=== PATIENT | male | born 1955 | race Caucasian/White ===

== ENCOUNTER 2018-05-18 11:53 | Outpatient (REF) | payer BC, SELFPAY ==
[2018-05-18 21:47] LABS: Anion Gap 6.7 mmol/L (3-11); BUN 19 mg/dL (7-18); CO2 28.3 mmol/L (21.0-32.0); CREATININE 1.17 mg/dL (0.70-1.30); Chloride 98 mmol/L (98-107); Cholesterol 173 mg/dL (50-200); Glucose 119 mg/dL (70-100); HDL Cholesterol 63 mg/dL (40-60); LDL CHOLESTEROL 100 mg/dL (<100); Potassium 4.2 mmol/L (3.5-5.1); Sodium 133 mmol/L (136-145); Triglyceride 101 mg/dL (30-150)
[2018-05-20 09:37] LABS: Hepatitis C Ab w Rflx HCV PCR Negative (NEGAT)
== END 2018-05-18 12:13 ==
LOC: NCHCN 11:53
PROVIDERS: Visit Provider Nurse Practitioner Family
DX: R81 Glycosuria (principal); N40.0 Benign prostatic hyperplasia without lower urinary tract symptoms; F41.8 Other specified anxiety disorders; E87.1 Hypo-osmolality and hyponatremia; I10 Essential (primary) hypertension; K21.9 Gastro-esophageal reflux disease without esophagitis; Z00.00 Encounter for general adult medical examination without abnormal findings; Z11.59 Encounter for screening for other viral diseases
CPT/HCPCS: 80048; 80061; 83721; 86803

== ENCOUNTER 2019-01-14 11:41 | Outpatient (REF) | payer BC, SELFPAY ==
[2019-01-14 21:03] LABS: Anion Gap 9.4 mmol/L (3-11); BUN 19 mg/dL (7-18); CO2 28.6 mmol/L (21.0-32.0); CREATININE 0.94 mg/dL (0.70-1.30); Calcium 9.5 mg/dL (8.5-10.1); Chloride 93 mmol/L (98-107); Glucose 95 mg/dL (70-100); Potassium 4.2 mmol/L (3.5-5.1); Sodium 131 mmol/L (136-145)
== END 2019-01-14 12:01 ==
LOC: NCHCN 11:41
PROVIDERS: PCP Nurse Practitioner Family; Visit Provider Nurse Practitioner Family
DX: I10 Essential (primary) hypertension (principal)
CPT/HCPCS: 80048

== ENCOUNTER 2019-04-14 12:53 | Outpatient (REF) | payer BC, SELFPAY ==
[2019-04-14 21:08] LABS: Anion Gap 6.5 mmol/L (3-11); BUN 18 mg/dL (7-18); CO2 31.5 mmol/L (21.0-32.0); CREATININE 1.01 mg/dL (0.70-1.30); Calcium 9.5 mg/dL (8.5-10.1); Chloride 97 mmol/L (98-107); Glucose 110 mg/dL (70-100); Potassium 4.8 mmol/L (3.5-5.1); Sodium 135 mmol/L (136-145)
== END 2019-04-14 13:13 ==
LOC: NCHCN 12:53
PROVIDERS: PCP Nurse Practitioner Family; Visit Provider Nurse Practitioner Family
DX: I10 Essential (primary) hypertension (principal)
CPT/HCPCS: 80048

== ENCOUNTER 2019-05-12 13:27 | Outpatient (REF) | payer BC, SELFPAY ==
[2019-05-12 21:38] LABS: Hemoglobin A1C 5.3 % (4.5-6.2)
== END 2019-05-12 13:47 ==
LOC: NCHCN 13:27
PROVIDERS: PCP Nurse Practitioner Family; Visit Provider Nurse Practitioner Family
DX: I10 Essential (primary) hypertension (principal); E87.1 Hypo-osmolality and hyponatremia; R81 Glycosuria; F41.8 Other specified anxiety disorders; K21.9 Gastro-esophageal reflux disease without esophagitis
CPT/HCPCS: 83036

== ENCOUNTER 2021-03-28 12:37 | Outpatient (REF) | payer BC, SELFPAY ==
[2021-03-28 16:51] LABS: ALT 48 U/L (16-63); AST 33 U/L (15-37); Albumin 4.3 g/dL (3.4-5.0); Alkaline Phosphatase 42 U/L (46-116); Anion Gap 12.1 mmol/L (3-11); BUN 18 mg/dL (7-18); Bilirubin, Total 0.7 mg/dL (0.2-1.0); CO2 25.9 mmol/L (21.0-32.0); CREATININE 0.9 mg/dL (0.70-1.30); Calcium 9.4 mg/dL (8.5-10.1); Calculated LDL 95 mg/dL (<100); Chloride 98 mmol/L (98-107); Cholesterol 176 mg/dL (<200); Glucose 118 mg/dL (74-106); HDL Cholesterol 58 mg/dL (40-60); Potassium 4.3 mmol/L (3.5-5.1); Sodium 136 mmol/L (136-145); Total Protein 7.3 g/dL (6.4-8.2); Triglyceride 118 mg/dL (<150)
== END 2021-03-28 12:38 | disposition home or self-care (01) ==
LOC: NCHCN 12:37
PROVIDERS: PCP Nurse Practitioner Family; Visit Provider Nurse Practitioner Family
DX: M72.0 Palmar fascial fibromatosis [Dupuytren] (principal); N40.0 Benign prostatic hyperplasia without lower urinary tract symptoms; F32.9 Major depressive disorder, single episode, unspecified; E87.1 Hypo-osmolality and hyponatremia; I10 Essential (primary) hypertension; K21.9 Gastro-esophageal reflux disease without esophagitis; Z86.010 Personal history of colon polyps
CPT/HCPCS: 80053; 80061

== ENCOUNTER 2021-07-02 11:08 | Outpatient (REF) | payer BC, SELFPAY ==
[2021-07-02 22:27] LABS: PSA, Screening 1.9 ng/mL (0.0-4.5)
== END 2021-07-02 11:09 | disposition home or self-care (01) ==
LOC: NCHCN 11:08
PROVIDERS: PCP Nurse Practitioner Family; Visit Provider Nurse Practitioner Family
DX: N40.0 Benign prostatic hyperplasia without lower urinary tract symptoms (principal); Z12.5 Encounter for screening for malignant neoplasm of prostate
CPT/HCPCS: 84153

== ENCOUNTER 2022-06-13 18:18 | Outpatient (REF) | payer BC, SELFPAY ==
[2022-06-13 16:01] LABS: Hemoglobin A1C 5.4 % (<5.7)
[2022-06-13 17:10] LABS: ALT 51 U/L (16-63); AST 34 U/L (15-37); Albumin 4.3 g/dL (3.4-5.0); Alkaline Phosphatase 42 U/L (46-116); Anion Gap 8.9 mmol/L (3-11); BUN 20 mg/dL (7-18); Bilirubin, Total 0.9 mg/dL (0.2-1.0); CO2 28.1 mmol/L (21.0-32.0); CREATININE 1.1 mg/dL (0.70-1.30); Calcium 9.4 mg/dL (8.5-10.1); Calculated LDL 83 mg/dL (<100); Chloride 94 mmol/L (98-107); Cholesterol 180 mg/dL (<200); Estimated GFR 74.04 (mL/min/1.73m2); Glucose 90 mg/dL (74-106); HDL Cholesterol 79 mg/dL (40-60); Potassium 4.3 mmol/L (3.5-5.1); Sodium 131 mmol/L (136-145); Triglyceride 92 mg/dL (<150)
== END 2022-06-13 18:19 | disposition home or self-care (01) ==
LOC: NCHCN 18:18
PROVIDERS: PCP Nurse Practitioner Family; Visit Provider Nurse Practitioner Family
DX: I10 Essential (primary) hypertension (principal); E66.9 Obesity, unspecified; F41.8 Other specified anxiety disorders; K21.9 Gastro-esophageal reflux disease without esophagitis; M72.0 Palmar fascial fibromatosis [Dupuytren]
CPT/HCPCS: 80053; 80061; 83036

== ENCOUNTER 2024-09-30 13:37 | Outpatient (REF) | payer BC, SELFPAY ==
--- OUTSIDE RECORDS SUMMARY | 2024-09-30 13:40 | XMS_ITS | Encounter Summary ---
Author Organization [facility] Address [facility] [place] [address] Care Team Providers Care Medical And Health Services Manager Name Role Phone Fani Jolley APRN Primary Care Provider [phone] [phone] Reason for Visit * Reason Comments Establish Care XR R 4th/5th finger Dups * Consultation (Routine) - Specialty Diagnoses / Procedures Referred By Joshua vega Referred To Contact Orthopaedics Diagnoses Palmar fascial fibromatosis (dupuytren) RIGHT DUPUYTREN'S CONTRACTURE Fani Jolley APRN [address] [place] [address] [facility] [address] [place] [address] Referral ID Status Reason Start Date Expiration Date V isits Requested Visits Authorized [id number] Consult, Test & Treat [facility] PCP Updated and/or Approved 10/06/2019 10/06/2020 12 12 Encounter Details Date Type Department Care Team (Late st Contact Info) Description 11/09/2019 1:00 PM EST Office [place] [address] Tamika Guan PA [facility] [place] [address] Dupuytren's contracture Social History Tobacco Use Types Packs/Day Years Used Date Smoking Tobacco: Former Pipe Q uit: 11/08/2009 Smokeless Tobacco: Never Alcohol Use Standard Drinks/Week Comments Yes 5 (1 standard drink = 0.6 oz pur e alcohol) Sex and Gender Information Value Date Recorded Sex Assigned at Not on file Gender Identity Not on file Sexual Orientation Not on file documented as of this encounter Last Filed Vital Signs Vital Sign Reading Time Taken Comments Blood Pressure 154/82 11/09/2019 1:06 PM EST Pulse 73 11/09/2019 1:06 PM EST Temperature - - Respiratory Rate - - Oxygen Saturation - - Inhaled Oxygen Concentration - - Weight 81.6 kg (180 lb) 11/09/2019 1:06 PM EST r eported Height 177.8 cm (5' 10) 11/09/2019 1:06 PM EST reported Body Mass Index 25.83 11/09/2019 1:06 PM EST documented in this encounter Progress Notes * Tamika Guan PA - 11/09/2019 1:00 PM EST PATIENT NAME: Dakota Cline AGE: 64 y.o. MR#: [id number] DATE OF VISIT: 11/09/2019 DATE OF INJURY/ONSET: Chronic STAFF: Dr. Diaz CHIEF COMPLAINT: Right hand contracture HISTORY OF PRESENT ILLNESS: Mr. Cline is a right hand dominant 64 y.o. male who comes into clinic today for evaluation of the right hand. He states that he has had a flexion contracture of his ring and small fingers for several years. He has perhaps noticed some slight worsening of the contracture recently. He is not having any significant hand pain. He is starting to develop some nodules in the left hand and states he has similar nodules in his feet. He is unaware of any family history of Dupuytren's disease. He denies having any history of seizure disease, alcoholism, or diabetes. He is noton any blood thinners. He states that he was told that topical verapamil might help with his hand symptoms. He has seen a physical therapist and initially felt that some stretching was helping with his contractures, but he was ultimately discharged from care. He also has a chiropractor who thought that cold laser therapy could be of benefit. He has not had any prior hand surgeries. Medications and Allergies were reviewed in eD-[facility] PAST MEDICAL HX: History reviewed. No pertinent past medical history. PAST SURGICAL HX: Past Surgical History: Procedure Laterality Date ??? PRO COLONOSCOPY, BIOPSY 05/01/2014 COLONOSCOPY FLEXIBLE, WITH BX performed by Gurvinder Bruce MD at [facility] ??? PRO COLONOSCOPY, DIAGNOSTIC N/A 06/20/2019 COLONOSCOPY, DIAGNOSTIC performed by Gurvinder Bruce MD at [facility] FAMILY HX: Family History Problem Relation Age of Onset ??? Diabetes Neg Hx SOCIAL HX: Social History Occupational History ??? Occupation: commercial truck driver Employer: [employer] Tobacco Use ??? Smoking status: Former Smoker Types: Pipe Last attempt to quit: 11/08/2009 Years since quittin.0 ??? Smokeless tobacco: Never Used Substance and Sexual Activity ??? Alcohol use: Yes Alcohol/week: 5.0 - 6.0 standard drinks Types: 5 - 6 Cans of beer per week ??? Drug use: Never ??? Sexual activity: Not on file ROS: Pertinent items are noted in HPI. General Health, Prior Treatments, PreExisting Condition, Health Habits, About You 11/09/2019 PROMIS-10 General Health Excellent PROMIS-10 Quality of Life Excellent PROMIS-10 Physical Health Excellent PROMIS-10 Mental Health Excellent PROMIS-10 Social Activity Very Good PROMIS-10 Everyday Activities Completely PROMIS-10 Pain 0 -No Pain PROMIS-10 Fatigue Mild PROMIS-10 Social Roles Excellent PROMIS-10 Anxious or Depressed Rarely PROMIS PHYSICAL SCORE (range 16-68) 61.9 PROMIS MENTAL SCORE (range 21-68) 59 Treatments Tried Physical therapy, Chiropractic or manipulation Alzheimers or dementia No Cirrohosis or liver disease No HIV/AIDS No Pain in more than one joint in legs No Back or neck pain No Heart attack No Heart failure No Unclog/bypass leg arteries No Stroke, blood clot, TIA No Asthma No Emphysema, chronic bronchities, or COPD No Stomach ulcers/peptic ulcer disease No Diabetes No Poor kidney function No Rheumatic condtions No Cancer No Weight (lbs) 180 Height (feet) 5 feet Height (Inches) 9 BMI 26.57 (Overweight) Ever used tobacco products Yes Tobacco frequency Never WHO - Tobacco Advice 0 (You are at low risk of health and other problems from your current pattern of use.) Ever used alcoholic beverages Yes Alcohol frequency Weekly WHO - Alcohol Advice 4 (You are at risk of health and other problems from your current pattern of alcohol use.) Live Alone No Marital situation Schooling High school graduate or GED Combined Household Income $35,000 to less than $50,000 # People Supported 3 Australian, , No, not Australian// Race White Health Literacy Quite a bit Currently working Yes Current job situation Full-time No flowsheet data found. No flowsheet data found. PHYSICAL EXAM: Mr. Cline is a 64 y.o. male who is in no apparent distress, alert and cooperative. Inspection: No erythema, ecchymosis, or swelling over the right hand. Palpation: He has a large palpable pretendinous cord that extends into the right small finger. Thisbranch is out into a smaller pretendinous cord that causes a contracture in the ring finger. He hasa nodule at the level of the proximal phalanx in the small finger. He is starting to develop some nodules and pretendinous cords in the left hand, but no significant contractures. ROM/Strength: He is able to flex all of his digits. He has a 70 degree MCP contracture in the rightsmall finger and 40 degrees MCP contracture in the right ring finger. There are no PIP contractures. Neurovascular: Intact motor function of the radial, median, and ulnar nerves. Intact sensation along radial, median, and ulnar nerve distributions. Good hand perfusion. DIAGNOSTIC STUDIES: X-rays of the right hand were personally reviewed. There is no evidence of any acute fracture or dislocation. No significant arthritic changes are noted. ASSESSMENT: Right hand Dupuytren's contractures PLAN: We discussed treatment options for dupuytren's disease including splinting and stretching, collagenase injection, and surgical fasciectomy. We also talked about the natural course of the disease including the unpredictable rate of worsening and recurrance. Risks associated with treatment werediscussed including infection, wound complications, nerve/blood vessel/tendon injury, incomplete correction of the contracture, and recurrence. 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 He is leaning towards Xiaflex therapy, but he would like to think about this before making a final decision. He was given information and will contact us if he would like to schedule treatment. Thepatient understands to contact us if they have any other questions or concerns. The above documentation was completed using [employer] voice recognition software. documented in this encounter Plan of Treatment Not on file documented as of this encounter Visit Diagnoses Diagnosis Dupuytren's contracture Contracture of palmar fascia documented in this encounter Care Teams Medical And Health Services Manager Relationship Specialty Start Date End Date Fani Jolley APRN [address] [place] [address] PCP - General Family Medicine 03/01/19 documented as of this encounter
--- OUTSIDE RECORDS SUMMARY | 2024-09-30 13:40 | XMS_ITS | Encounter Summary ---
Author Organization [facility] Address [place] [id number] Care Team Providers Care Senior Private Client Advisor Name Role Phone Fani Jolley APRN Primary Care Provider [phone] Reason for Visit * Occupational Therapy (Routine) - Closed Specialty Diagnoses / Procedures Referred By Contshade t Referred To Contact Occupational Therapy / Orthopaedics Diagnoses Dupuytren contracture Dupuytren contracture Procedures Evaluate and Treat Joao Diaz MD [facility] [place] [address] Farzaneh Ivory OT Referral ID Status Reason Start Date Expiration Date V isits Requested Visits Authorized [id number] Closed Evaluate and Treat 12/19/2020 12/19/2021 12 12 Encounter Details Date Type Department Care Team (Late st Contact Info) Description 12/19/2020 11:45 AM EDT Office [place] [address] Farzaneh Ivory OT Dupuytren's contracture Social History Tobacco Use Types [...] on file documented as of this encounter Miscellaneous Notes * Initial Evaluation - Farzaneh Ivory OT - 12/19/2020 11:45 AM EDT OCCUPATIONAL THERAPY ORTHOTIC EVALUATION Certification Period: 12/19/20 - 02/13/21 Referral Source: Dr. Emily Shine MD Follow-up: PRN Total Treatment time: 20 Minutes Timed Code Treatment Time: 0 minutes OCCUPATIONAL PROFILE: Dakota Cline is a 65 y.o. year old Right hand dominant male who who underwent Xiaflex injection on 12/17/20 , now seen in orthopedics clinic following a manipulation of cord(s)in RIGHT ring and small finger(s). Dakota Cline is referred to Occupational Therapy for evaluation and treatment to include fabrication of a custom orthosis. Patient presents today alone. Date of onset of symptoms: Ongoing Date of surgery: Pertinent History and/or Co-morbidities: No diagnosis found. OCCUPATIONAL PERFORMANCE DEFICITS: Dakota Cline is limited with current performance due to swelling and stiffness. Global Mental Function: With gross screening of patient???s global mental functions, patient demonstrates orientation to person, place, time, and situation. Patient???s affect/behavior is appropriateand cooperative today. Pain: (Assessed using the Visual Analog Pain Scale) At Rest: 09/16 With Activity: 11/14 Treatment Today: Orthosis - Hand Finger Orthotic, W/O Jts, Custom, Fit & Adj ([id number]) Educated patient in etiology and biomechanics as related to patient's symptoms Fabricated hand-based volar extension orthosis Instructed in orthosis wear and care: on during day and night until 12/22/20. Remove every 2-3 hoursfor AROM flexion, extension; PROM extension. On Thursday, may stop daytime wear and wear only during sleep for the next week. Resume normal use as tolerated,continue with exercises for 1-2 weeks. CLINICAL DECISION MAKING: Dakota Cline has a well fitting orthosis post therapy. Dakota Cline is able to independently verbalize and demonstrate the recommended home program following instructions today. Dakota Cline has good potential for gains with therapy/home program use. Patient knows tocall with any questions or concerns. Short Term Goals (to be met by end of the visit today): Date Goal Met: Today 1. Dakota Cline will demonstrate independence with donning and doffing of his orthosis and verbalization of purpose. Goal Status: Meets. Today 2. Dakota Cline will be independent with home exercises as evident with demonstration in therapy. Goal Status: Meets PLAN: Therapeutic exercises to increase functional mobility and Orthosis to provide support and protection to the joint (X) Dakota Cline participated in the evaluation, collaborated on treatment goals, and agrees to the treatment plan. documented in this encounter Plan of Treatment Scheduled Referrals Name Type Priority Associated Diagnoses Orde r Schedule Referral to Occupational Therapy Outpatient Referral Routine Dupuytren contracture Ordered: 12/19/2020 documented as of this encounter Visit Diagnoses Diagnosis Dupuytren's contracture Contracture of palmar fascia documented in this encounter Care Teams Senior Private Client Advisor Relationship Specialty Start Date End Date Fani Jolley APRN [address] [place] [address] PCP - General Family Medicine 03/01/19 documented as of this encounter
--- OUTSIDE RECORDS SUMMARY | 2024-09-30 13:40 | XMS_ITS | Encounter Summary ---
Author Organization [facility] Address [facility] [place] [address] Care Team Providers Care Filer Finish Name Role Phone Fani Jolley APRN Primary Care Provider [phone] Reason for Visit * Reason Comments Follow-up R small and ring ajay flex * High Dollar Medication (Routine) - Closed Specialty Diagnoses / Procedures Referred By Joshua t Referred To Contact Orthopaedics Diagnoses Dupuytren contracture Procedures Xiaflex Authorization Request (IN CLINIC) TC COLLAGENASE CLOSTRIDIUM HISTOLYTICUM, 0.01MG, INJECTION XIAFLEX Tamika Guan PA [facility] [address] Joao Diaz MD [facility] [place] [address] Referral ID Status Reason Start Date Expiration Date V isits Requested Visits Authorized [id number] Closed Consult, Test & Treat 10/25/2020 10/25/2021 1 1 Encounter Details Date Type Department Care Team (Late st Contact Info) Description 12/17/2020 8:00 AM EDT Office [place] [id number] Joao Diaz MD [facility] [place] [address] Dupuytren contracture; Dupuytren's contracture Social History Tobacco Use Types [...] Sign Reading Time Taken Comments Blood Pressure 140/73 12/17/2020 8:01 AM EDT Pulse 65 12/17/2020 8:01 AM EDT Temperature - - Respiratory Rate - - Oxygen Saturation - - Inhaled Oxygen Concentration - - Weight 83.9 kg (185 lb) 12/17/2020 8:01 AM EDT r eported Height 177.8 cm (5' 10) 12/17/2020 8:01 AM EDT reported Body Mass Index 26.54 12/17/2020 8:01 AM EDT documented in this encounter Progress Notes * Joao Diaz MD - 12/17/2020 8:00 AM EDT Dakota Cline is seeing me for the first time today for Dupuytren's contractures of his right ringand small fingers. He has pretendinous cords into both digits leading to a 50 degree MCP contracture of the ring finger and a 75 degree MCP contracture of the small finger. He also has an ulnar spiral cord in the ring finger without a significant PIP contracture. He has a radial spiral cord in the small finger leading to a 45 degree PIP contracture. He reports that these have been present for at least 5 years. We discussed the options of Xiaflex therapy versus palmar fasciectomy and he strongly prefers to proceed with Xiaflex therapy today. I had a comprehensive discussion with him about the technique of the procedure as well as the potential risks and he opted to proceed. Today a preinjection timeout was done. I then injected 5 cc of 1% lidocaine into the ring and smallfinger rays of his right hand. After allowing his hand to be numb I injected 0.9 mg of Xiaflex intothe pretendinous and spiral cords in the ring and small fingers. He tolerated this well without apparent complications. He will return in 2 days for cord rupture. documented in this encounter Plan of Treatment Not on file documented as of this encounter Visit Diagnoses Diagnosis Dupuytren contracture Contracture of palmar fascia Dupuytren's contracture Contracture of palmar fascia documented in this encounter Administered Medications Inactive Administered Medications - up to 3 most recent administrations Medication Order MAR Action Action Date Dose Rate Site collagenase clostridium histolyticum (Xiaflex) solution for injection 0.9 mg 0.9 mg, INTRALESIONAL, ONCE, 1 dose, On Thu12/17/20 at 0845, Routine, Is this medication being prescribed for treatment of Peyronie? s disease? No Given 12/17/2020 8:27 AM EDT 0.9 mg documented in this encounter Care Teams Filer Finish Relationship Specialty Start Date End Date Fani Jolley APRN [address] [place] [address] PCP - General Family Medicine 03/01/19 documented as of this encounter
--- OUTSIDE RECORDS SUMMARY | 2024-09-30 13:40 | XMS_ITS | Encounter Summary ---
Author Organization [facility] Address [facility] [place] [address] Care Team Providers Care Improvement Spec Name Role Phone Fani Jolley APRN Primary Care Provider [phone] Reason for Visit * Reason Onset Date Comments Other 10/19/2020 Questions about xiaflex or treatments Encounter Details Date Type Department Care Team (Late st Contact Info) Description 10/19/2020 Telephone [place] [address] Tamika Guan PA [facility] [place] [address] Other (Questions about xiaflex or treatments) Social History Tobacco Use Types Packs/Day Years [...] as of this encounter Miscellaneous Notes * Telephone Encounter - Alea Hatch - 10/22/2020 3:18 PM EST Second attempt to call out to answer questions regarding Xiaflex injection. No answer. Message lefton a marked voicemail to call back. * Telephone Encounter - Alea Hatch - 10/19/2020 4:30 PM EST Attempted to call out to patient to discuss xiaflex. Phone line was busy. * Telephone Encounter - Domonique Ortiz I - 10/19/2020 12:54 PM EST Dakota called and has questions about the xiaflex injection, treatments he can have for his right hand Dupuytren's contracture. He would like It explained to him and maybe schedule. Call him mid day between 11-2 pm. He can be reached at [phone] documented in this encounter Plan of Treatment Not on file documented as of this encounter Visit Diagnoses Not on filedocumented in this encounter Care Teams Improvement Spec Relationship Specialty Start Date End Date Fani Jolley APRN [address] [place] [address] PCP - General Family Medicine 03/01/19 documented as of this encounter
--- OUTSIDE RECORDS SUMMARY | 2024-09-30 13:40 | XMS_ITS | Encounter Summary ---
Author Organization [facility] Address [facility] [address] [place] [address] Care Team Providers Care Nutrient Management Specialist Name Role Phone Fani Jolley APRN Primary Care Provider [phone] Encounter Details Date Type Department Care Team (Latest Contact Info) Description 11/09/2019 11:36 AM EST - 11/09/2019 11:59 PM EST Hospital Encounter XRay at [address] [place] [address] Joao Diaz MD [facility] [place] [address] Right hand pain Discharge Disposition: Home Social History Tobacco Use Types Packs/Day Years Used Date Smoking Tobacco: Former Pipe Q uit: 11/08/2009 Smokeless Tobacco: Never Alcohol Use Standard Drinks/Week Comments Yes 5 (1 standard drink = 0.6 oz pur e alcohol) Sex and Gender Information Value Date Recorded Sex Assigned at Not on file Gender Identity Not on file Sexual Orientation Not on file documented as of this encounter Medications at Time of Discharge Medication Sig Dispensed Refills Start Date End Date UNABLE TO FIND daily. Palmentto hydroCHLOROthiazide (HYDRODIURIL) 12.5 mg Tablet Take 12.5 mg by mouth daily. amLODIPine (NORVASC) 10 mg Tablet Take 10 mg by mouth daily. tamsulosin (FLOMAX) 0.4 mg Capsule Take 0.4 mg by mouth daily. atenolol (TENORMIN) 25 mg Tablet Take 25 mg by mouth daily. lisinopril (PRINIVIL;ZESTRIL) 20 mg tablet Take 40 mg by mouth daily. sertraline (ZOLOFT) 25 mg tablet Take 50 mg by mouth daily. documented as of this encounter Plan of Treatment Not on file documented as of this encounter Procedures Procedure Name Priority Date/Time Associated Diagnosis Comments XR HAND MIN 3 VIEWS RIGHT Routine 11/09/2019 11:44 AM EST Right hand pain documented in this encounter Results * XR Hand Min 3 views Right (Generic) (11/09/2019 11:44 AM EST) Anatomical Region Laterality Modality Hand Right Digital Radiogra phy Impressions 11/09/2019 2:52 PM EST Flexion deformity at the small and ring finger MCP joints. Questionable whether there is a similar flexion deformity at the long finger MCP joint. Thank you for letting us participate in the care of this patient. For questions regarding this report, please contact the number below. ? Narrative 11/09/2019 2:52 PM EST EXAMINATION: XR HAND MIN 3 VIEWS RIGHT (GENERIC) CLINICAL HISTORY: Right 4th/5th finger pain. (as entered by ordering provider in the order requisition) TECHNIQUE: 3 views RIGHT hand. ??PA, oblique, lateral views the right hand. COMPARISON: None FINDINGS: No visible fracture. There is flexion deformity centered at the small and ring fingers at the level of the metacarpal phalangeal joints. There is a suggestion of a similar flexion deformity of the long finger at the MCP joint. Procedure Note Haley Dueñas MD - 11/09/2019 EXAMINATION: XR HAND MIN 3 VIEWS RIGHT (GENERIC) CLINICAL HISTORY: Right 4th/5th finger pain. (as entered by orderingprovider in the order requisition) TECHNIQUE: 3 views RIGHT hand. PA, oblique, lateral views the right hand. COMPARISON: None FINDINGS: No visible fracture. There is flexion deformity centered at the small andring fingers at the level of the metacarpal phalangeal joints. There is asuggestion of a similar flexion deformity of the long finger at the MCP joint. IMPRESSION Flexion deformity at the small and ring finger MCP joints. Questionablewhether there is a similar flexion deformity at the long finger MCP joint. Thank you for letting us participate in the care of this patient. Forquestions regarding this report, please contact the number below. Joao Diaz MD IMG DX ORDERABLES documented in this encounter Visit Diagnoses Diagnosis Right hand pain Pain in limb documented in this encounter Care Teams Nutrient Management Specialist Relationship Specialty Start Date End Date Fani Jolley APRN [address] [place] [address] PCP - General Family Medicine 03/01/19 documented as of this encounter
--- OUTSIDE RECORDS SUMMARY | 2024-09-30 13:40 | XMS_ITS | Encounter Summary ---
[place] [address] Care Team Providers Care Bench Assembler Operator Name Role Phone Fani Jolley APRN Primary Care Provider [phone] Reason for Visit * Reason Onset Date Comments Appointment 10/17/2019 Encounter Details Date Type Department Care Team (Late st Contact Info) Description 10/17/2019 [place] [id number] Leah Brown Appointment Social History Tobacco Use Types Packs/Day Years Used Date Smoking Tobacco: Former Pipe Smokeless Tobacco: Never Alcohol Use Standard Drinks/Week Comments Yes 5 (1 standard drink = 0.6 oz pur e alcohol) Sex and Gender Information Value Date Recorded Sex Assigned at Not on file Gender Identity Not on file Sexual Orientation Not on file documented as of this encounter Miscellaneous Notes * Telephone Encounter - Jo Garcia - 10/17/2019 2:14 PM EST Patient scheduled * Telephone Encounter - Leah Brown - 10/17/2019 12:54 PM EST Caller and relationship to patient (if other than patient): Dakota Best time to reach caller: any Message or Reason for Call: Dakota called to schedule an appointment from a referral Appt Needed and Reason: yes, referral Provider: ? documented in this encounter Plan of Treatment Not on file documented as of this encounter Visit Diagnoses Not on filedocumented in this encounter Care Teams Bench Assembler Operator Relationship Specialty Start Date End Date Fani Jolley APRN [address] [place] [address] PCP - General Family Medicine 03/01/19 documented as of this encounter
--- OUTSIDE RECORDS SUMMARY | 2024-09-30 13:40 | XMS_ITS | Clinical Summary ---
Author Organization [facility] [place] [address] Care Team Providers Care Orthotic Practitioner Name Role Phone Fani Jolley APRN Primary Care Provider [phone] [phone] Allergies Active Allergy Reactions Criticality Noted Date Comments Chlorthalidone 12/17/2020 Constipation Medications Medication Sig Dispensed Refills Start Date End Date Status lisinopril (PRINIVIL;ZESTRIL) 20 mg tablet Take 40 mg by mouth daily. Active sertraline (ZOLOFT) 25 mg tablet Take 50 mg by mouth daily. Active hydroCHLOROthiazide (HYDRODIURIL) 12.5 mg Tablet Take 12.5 mg by mouth daily. Active amLODIPine (NORVASC) 10 mg Tablet Take 10 mg by mouth daily. Active tamsulosin (FLOMAX) 0.4 mg Capsule Take 0.4 mg by mouth daily. Active atenolol (TENORMIN) 25 mg Tablet Take 25 mg by mouth daily. Active UNABLE TO FIND daily. Palmentto Acti ve Active Problems Problem Noted Date Diagnosed Date Dupuytren's contracture 11/09/2019 Family History Medical History Relation Comments Diabetes Neg Hx Social History Tobacco Use Types Packs/Day Years Used Date Smoking Tobacco: Former Pipe Q uit: 11/08/2009 Smokeless Tobacco: Never Alcohol Use Standard Drinks/Week Comments Yes 5 (1 standard drink = 0.6 oz pur e alcohol) Sex and Gender Information Value Date Recorded Sex Assigned at Not on file Gender Identity Not on file Sexual Orientation Not on file Last Filed Vital Signs Vital Sign Reading Time Taken Comments Blood Pressure 153/85 12/19/2020 8:00 AM EDT Pulse 60 12/19/2020 8:00 AM EDT Temperature 36.8 ??C (98.2 ??F) 06/20/2019 12:27 PM E DT Respiratory Rate 19 06/20/2019 2:00 PM EDT Oxygen Saturation 98% 06/20/2019 2:00 PM EDT Inhaled Oxygen Concentration - - Weight 83.9 kg (185 lb) 12/19/2020 8:00 AM EDT Height 177.8 cm (5' 10) 12/19/2020 8:00 AM EDT Body Mass Index 26.54 12/19/2020 8:00 AM EDT Plan of Treatment Health Maintenance Due Date Last Done Comments CT Colonography 1955 FIT DNA 1955 FIT 1955 Sigmoidoscopy 1955 Hepatitis C Screening 01/29/1974 Lipid Screening 01/29/1974 Tetanus/Diphtheria/Pertussis Vaccines (1 - Tdap) 01/29/1975 Pneumoccocal Vaccine: 50+ (1 of 1 - PCV) 01/29/2006 Zoster vaccine (1 of 2) 01/29/2006 Advance Directive 01/29/2011 Covid-19 Vaccine (1 - 2023-2 5 season) 2024 Influenza (Flu) vaccine (1 o f 1 - Influenza standard series) 05/08/2024 Colonoscopy 06/20/2024 06/20/2019, 06/07, 05/01/2014, Additional history exists Colorectal Cancer Screening 06/20/2024 Sigmoidoscopy (10 year) with FIT yearly 06/20/2029 06/20/2019, 06/20/2019, 05/01/2014, Additional history exists Procedures Procedure Name Priority Date/Time Associated Diagnosis Comments COLONOSCOPY Routine 06/20/2019 12:03 PM EDT from Last 3 Months or Most Recently Relevant to Health Maintenance Results * COLONOSCOPY (06/20/2019 12:03 PM EDT) COLONOSCOPY [facility] Endoscopy ___ Procedure Date: 06/20/2019 12:03 PM ? Patient Name: Dakota Cline ? Date of : 1955 ? Age: 64 ? Order #: [id number] ? Instrument Name: [id number] ? ___ Procedure: ? Colonoscopy Indications: ? High risk colon cancer surveillance: ? Personal history of colonic polyps Providers: ? Gurvinder Bruce MD, Lisa Robertson, ? RN, Leon Cerda MD: ?Fani Jolley Medicines: ? Propofol per Anesthesia Complications: ? No immediate complications. ___ Procedure: ? Pre-Anesthesia Assessment: ? - Prior to the procedure, a History ? and Physical was performed, and ? patient medications, allergies and ? sensitivities were reviewed. The ? patient's tolerance of previous ? anesthesia was reviewed. ? - The risks and benefits of the ? procedure and the sedation options ? and risks were discussed with the ? patient. All questions were answered ? and informed consent was obtained. ? - ASA Grade Assessment: II - A ? patient with mild systemic disease. ? - Using IV propofol under the ? supervision of an anesthesiologist ? was determined to be medically ? necessary for this procedure based on ? patient's history of problems with ? anesthesia. ? The procedure, indications, benefits, ? risks and alternatives were explained ? to the patient. Specifically ? discussed were potential ? complications including, but not ? limited to, bleeding, perforation, ? infection, missing a cancer, and ? adverse medication reactions. The ? patient was placed in the left ? lateral decubitus position, and a ? digital rectal exam was performed. ? The Colonoscope was inserted in the ? anus and under direct visualization, ? advanced to the terminal ileum. ? Careful inspection was made as the ? colonoscope was withdrawn. The ? patient tolerated the procedure well. ? The quality of the bowel preparation ? was excellent. The quality of the ? bowel preparation was evaluated using ? the BBPS ([place] Bowel Preparation ? Scale) with scores of: Right Colon = ? 3, Transverse Colon = 3 and Left ? Colon = 3 (entire mucosa seen well ? with no residual staining, small ? fragments of stool or opaque liquid). ? The total BBPS score equals 9. The ? total duration of the procedure was ? 25 minutes. ? Findings: ? The perianal and digital rectal examinations were ? normal. ? The terminal ileum appeared normal. ? A 3 mm polyp was found in the sigmoid colon. The ? polyp was sessile. The polyp was removed with a cold ? snare. Resection and retrieval were complete. ? The retroflexed view of the distal rectum and anal ? verge was normal and showed no anal or rectal ? abnormalities save for a small hypertrophied anal ? papilla. ? The exam was otherwise without abnormality. ? Moderate Sedation: ? Not applicable - See Anesthesia documentation Impression: ?- The examined portion of the ileum ? was normal. ? - One 3 mm polyp in the sigmoid ? colon, removed with a cold snare. ? Resected and retrieved. ? - The distal rectum and anal verge ? are normal on retroflexion view save ? for a small benign hypertrophied anal ? papilla. ? - The examination was otherwise ? normal. Recommendation: ?- Await pathology results. ? - Repeat colonoscopy in 5 years for ? surveillance. ? Attending Participation: ? I personally performed the entire procedure. ? Gurvinder Bruce MD 06/20/2019 1:26:46 PM This report has been signed electronically. Number of Addenda: 0 Note Initiated On: 06/20/2019 12:03 PM PROVATION 06/20/2019 12:0 3 PM EDT Fani Jolley APRN GENERAL SURGICAL ORDERABLES PROVATION from Last 3 Months or Most Recently Relevant to Health Maintenance Care Teams Orthotic Practitioner Relationship Specialty Start Date End Date Fani Jolley APRN [address] [place], [place] [id number] PCP - General Family Medicine 03/01/19
--- OUTSIDE RECORDS SUMMARY | 2024-09-30 13:40 | XMS_ITS | Encounter Summary ---
Author Organization [facility] [place] [address] Care Team Providers Care Manager Strategic Sourcing Name Role Phone Fani Jolley APRN Primary Care Provider [phone] Encounter Details Date Type Department Care Team (Late st Contact Info) Description 10/25/2020 Telephone [place] [id number] Alea Hatch Social History Tobacco Use Types Packs/Day Years [...] * Telephone Encounter - Alea Hatch - 10/25/2020 11:30 AM EST I spoke with Mr. Cline regarding moving forward with Xiaflex injections. He was seen last in November 2019 by Tamika Guan who evaluated his dupuytren contracture and recommended xiaflex injection. Due to the ongoing pandemic - he did not proceed with this at that time, but would like to begin the process of getting the injection. I discussed that Dr. Diaz does the injection over a two day period. I did discuss that we are booking into December 2020 for these injections and I can get him tentatively scheduled since he has already seen one of our providers. I did discuss that since it has almost been a full year since we lastsaw him that we might like for him to come in to be evaluated again and to get the measurements of the fingers again. Mr. Cline was happy to comply with this plan and get tentatively scheduled for the injections. I scheduled him on 12/17 and 12/19 at 8am for the xiaflex injection. I have sent a note out to Dr. Diaz in regards to his contracture degrees as of a year ago and ifhe would like him to come back to be re-measured or not. I will call back out to Mr. Cline once I hear back from Dr. Diaz in regards to a follow up appointment prior to his injections. documented in this encounter Plan of Treatment Not on file documented as of this encounter Visit Diagnoses Not on filedocumented in this encounter Care Teams Manager Strategic Sourcing Relationship Specialty Start Date End Date Fani Jolley APRN [address] [place] [address] PCP - General Family Medicine 03/01/19 documented as of this encounter
--- OUTSIDE RECORDS SUMMARY | 2024-09-30 13:40 | XMS_ITS | Encounter Summary ---
Author Organization [facility] [place] [address] Care Team Providers Care Book Illustrator Name Role Phone Fani Jolley APRN Primary Care Provider [phone] Reason for Referral * Occupational Therapy (Routine) - Closed Specialty Diagnoses / Procedures Referred By Contshade t Referred To Contact Occupational Therapy / Orthopaedics Diagnoses Dupuytren contracture Dupuytren contracture Procedures Evaluate and Treat Joao Diaz MD [facility] [place] [address] Farzaneh Ivory, OT Referral ID Status Reason Start Date Expiration Date V isits Requested Visits Authorized [id number] Closed Evaluate and Treat 12/19/2020 12/19/2021 12 12 Reason for Visit * Reason Comments Follow-up Right small and ring xiaflex Encounter Details Date Type Department Care Team (Late st Contact Info) Description 12/19/2020 8:00 AM EDT [place] [address] Joao Diaz MD [facility] [place] [address] Dupuytren contracture; Dupuytren's contracture Social History Tobacco [...] Pulse 60 12/19/2020 8:00 AM EDT Temperature - - Respiratory Rate - - Oxygen Saturation - - Inhaled Oxygen Concentration - - Weight 83.9 kg (185 lb) 12/19/2020 8:00 AM EDT Height 177.8 cm (5' 10) 12/19/2020 8:00 AM EDT Body Mass Index 26.54 12/19/2020 8:00 AM EDT documented in this encounter Progress Notes * Joao Diaz MD - 12/19/2020 8:00 AM EDT Dakota Cline presents 2 days following Xiaflex injection for his right ring and small fingers. Hereports that he has had some partial release of his cords when he rolled on his hand overnight. Otherwise he has had no particular problems. He denies lymphadenopathy. He does have a normal amount ofhand swelling and ecchymosis on the right. His sensation remains intact as does his flexion of his digits. Today a preinjection timeout was done. Under sterile conditions I infiltrated 10 cc of 1% lidocaineinto his ring and long finger rays of his right hand. I then extended and ruptured his pretendinousand spiral cords completely. There were no complications no skin tears. Flexion remained intact at the conclusion of the procedure. Today he will be seen by our hand therapist for stretching and splinting program. He will see me back in the future for this on a as needed basis. documented in this encounter Plan of Treatment Scheduled Referrals Name Type Priority Associated Diagnoses Orde r Schedule Referral to Occupational Therapy Outpatient Referral Routine Dupuytren contracture Ordered: 12/19/2020 documented as of this encounter Visit Diagnoses Diagnosis Dupuytren contracture Contracture of palmar fascia Dupuytren's contracture Contracture of palmar fascia documented in this encounter Care Teams Book Illustrator Relationship Specialty Start Date End Date Shola, Fani H, BLEACH ANALYST [address] [place] [address] PCP - General Family Medicine 03/01/19 documented as of this encounter
--- OUTSIDE RECORDS SUMMARY | 2024-09-30 13:40 | XMS_ITS | Encounter Summary ---
Author Organization [facility] [place] [address] Care Team Providers Care Hr Director Name Role Phone Fani Jolley APRN Primary Care Provider [phone] Reason for Referral * High Dollar Medication (Routine) - Closed Specialty Diagnoses / Procedures Referred By Contac t Referred To Contact Orthopaedics Diagnoses Dupuytren contracture Procedures Xiaflex Authorization Request (IN CLINIC) TC COLLAGENASE CLOSTRIDIUM HISTOLYTICUM, 0.01MG, INJECTION XIAFLEX Tamika Guan PA [facility] [place] [address] Joao Diaz MD [facility] [place] [address] Referral ID Status Reason Start Date Expiration Date V isits Requested Visits Authorized [id number] Closed Consult, Test & Treat 10/25/2020 10/25/2021 1 1 Encounter Details Date Type Department Care Team (Late st Contact Info) Description 10/25/2020 [place] [phone] Alea Hatch Social History Tobacco Use Types [...] Telephone Encounter - Alea Hatch - 10/25/2020 3:37 PM EST Called and spoke with Alicia, , after speaking with Dr. Diaz who stated that he should not need to have a visit before his injection due to the the contractures. I did discuss that it was possible that at the time of the injection that Dr. Diaz might decide that Xiaflex is not the best course of treatment, and she was very understanding of this. We did discuss that he does not necessarily need a ride for the appointments but it is a good idea incase he gets light headed or dizzy duringor after the injection. She was more than happy to take the time and ensure he had a ride to and from the appointments and is aware of the current hospital regulations of guests during appointments due to the ongoing pandemic. She stated that she would relay all of this to Mr. Cline since he was out working in the [employer]. She had no further questions or concerns and is aware that they may call us with any further question or concerns that they might have. Prior authorization for Xiaflex was placed at this time. documented in this encounter Plan of Treatment Not on file documented as of this encounter Visit Diagnoses Diagnosis Dupuytren contracture Contracture of palmar fascia documented in this encounter Care Teams Hr Director Relationship Specialty Start Date End Date Fani Jolley APRN [address] [place] [address] PCP - General Family Medicine 03/01/19 documented as of this encounter
--- OUTSIDE RECORDS SUMMARY | 2024-09-30 13:40 | XMS_ITS | Encounter Summary ---
[place] [address] Care Team Providers Care Music Promoter Name Role Phone Melvi Gomez APRN Primary Care Provider + [phone] Reason for Referral * Diagnostic Test (Routine) - Closed Specialty Diagnoses / Procedures Referred By Contac t Referred To Contact Radiology Diagnoses Screening for cardiovascular condition Procedures US AAA Screening Melvi Gomez APRN [address] [place] [address] [facility] [place] [address] Referral ID Status Reason Start Date Expiration Date V isits Requested Visits Authorized [id number] Closed Specialty Service Requested 03/29/2021 09/29/2022 1 1 Reason for Visit * Diagnostic Test (Routine) - Closed Specialty Diagnoses / Procedures Referred By Contac t Referred To Contact Radiology Diagnoses Screening for cardiovascular condition Procedures US AAA Screening Melvi Gomez APRN [address] [place] [address] [facility] [place] [address] Referral ID Status Reason Start Date Expiration Date V isits Requested Visits Authorized [id number] Closed Specialty Service Requested 03/29/2021 09/29/2022 1 1 Encounter Details Date Type Department Care Team (Latest Contact Info) Description 05/08/2021 7:45 AM EDT - 05/08/2021 11:59 PM EDT Hospital [place] [phone] Melvi Gomez APRN [address] [place] [address] Screening for cardiovascular condition Discharge Disposition: Home Social History Tobacco Use [...] Procedure Name Priority Date/Time Associated Diagnosis Comments US ULTRASOUND AAA SCREENING Routine 05/08/2021 8:25 AM EDT Screening for cardiovascular condition documented in this encounter Results * US AAA Screening (05/08/2021 8:25 AM EDT) Anatomical Region Laterality Modality Chest, Abdomen Ultrasound 05/08/2021 8:21 AM EDT Impressions 05/08/2021 8:51 AM EDT No abdominal aortic aneurysm identified. The visualized bilateral common iliac arteries are also normal in caliber. Thank you for letting us participate in the care of this patient. If you are a health care provider and have any questions regarding this report, please contact the number above. For patients who have questions, please contact the health director medicare sales that requested your imaging first. ? Deborah Kc, Staff Physician Electronically Signed Final Report ?? 05/08/2021 08:50 am Narrative 05/08/2021 8:51 AM EDT Aorta ? (Signed Final 05/08/2021 08:50 am) PATIENT INFO: ID #: ? [id number] ?: ??[birth year] (66 yrs)(M) Name: ? DAKOTA CLINE ? Visit Date: 05/08/2021 08:21 am PERFORMED BY: Performed By: ? Stef Muller RDMS Attending: ?Yamini GRUBBS, Deborah Lujan Referred By: ?MELVI GOMEZ Location: ? [place] SERVICE(S) PROVIDED: UAORTA - AAA Screening - [id number] INDICATIONS: AAA SCREENING; CARDIOVASCULAR SCREENING COMPARISON: None available ------ AORTA: ------ Measurements (cm): Proximal ? AP: ?? 2.3 ?TV: ?? 2.3 Mid ?AP: ?? 1.8 ?TV: ?? 2.1 Distal ? AP: ?? 1.7 ?TV: ?? 2.3 Rt Iliac ? AP: ?? 0.9 ?TV: ?? 1.3 Lt Iliac ? AP: ?? 0.9 ?TV: ?? 1.4 Comment: ?No focal aneursym identified. Procedure Note Deborah Kc MD - 05/08/2021 Aorta (Signed Final 05/08/2021 08:50 am) PATIENT INFO: ID #: [id number] : [birth year] (66 yrs)(M) Name: DAKOTA CLINE Visit Date: 05/08/2021 08:21 am PERFORMED BY: Performed By: Stef Muller RDMS Attending: Deborah Kc MD Referred By: MELVI GOMEZ Location: [place] SERVICE(S) PROVIDED: UAORTA - AAA Screening - [id number] INDICATIONS: AAA SCREENING; CARDIOVASCULAR SCREENING COMPARISON: None available ------ AORTA: ------ Measurements (cm): Proximal AP: 2.3 TV: 2.3 Mid AP: 1.8 TV: 2.1 Distal AP: 1.7 TV: 2.3 Rt Iliac AP: 0.9 TV: 1.3 Lt Iliac AP: 0.9 TV: 1.4 Comment: No focal aneursym identified. IMPRESSION No abdominal aortic aneurysm identified. The visualized bilateral common iliac arteries are also normal in caliber. Electronically signed by: Deborah Kc MD, [facility] ([phone]), at 05/08/2021 8:44 AM Thank you for letting us participate in the care of this patient. If you are a health care provider and have any questions regarding this report, please contact the number above. For patients who have questions, please contact the health director medicare sales that requested your imaging first. Deborah Kc, Staff Physician Electronically Signed Final Report 05/08/2021 08:50 am Melvi Gomez APRN IM US GEN ORDERA BLES documented in this encounter Visit Diagnoses Diagnosis Screening for cardiovascular condition Screening for other and unspecified cardiovascular conditions documented in this encounter Care Teams Music Promoter Relationship Specialty Start Date End Date Melvi Gomez APRN [address] [place] [address] PCP - General Family Medicine 03/01/19 documented as of this encounter
--- OUTSIDE RECORDS SUMMARY | 2024-09-30 13:41 | XMS_ITS | Clinical Summary ---
Author Organization [facility] Address [address] [place] [address] Care Team Providers Care Ict Support And Test Engineers Name Role Phone Unavailable Primary Care Provider Unavailabl e Social History Tobacco Use Types Packs/Day Years Used Date Smoking Tobacco: Never Assessed Sex and Gender Information Value Date Recorded Sex Assigned at Not on file Legal Sex Male 16:01 EDT Gender Identity Not on file Sexual Orientation Not on file Plan of Treatment Health Maintenance Due Date Last Done Comments Hepatitis C Screen 1955 Fall Risk Screening 01/29/2021 COVID-19 Vaccine ( season) 2024 RSV Immunization ( o r 60+ Years) (1 - 1-dose 75+ series) 01/29/2031
--- OUTSIDE RECORDS SUMMARY | 2024-09-30 13:41 | XMS_ITS | Encounter Summary ---
Author Organization [facility] [place] [address] Care Team Providers Care Hatchery Man Name Role Phone Trent Melo MD Primary Care Provider [phone] Encounter Details Date Type Department Care Team (Late st Contact Info) Description 05/01/2014 1:07 PM EDT Anesthesia [place] [address] Elías Alicea MD [facility] [place] [address] [address] [address] Anesthesia Record Procedure Summary Procedure Name Responsible Anesthesiologist Anesthesia Start Time Anesthesia Stop Time COLONOSCOPY FLEXIBLE, WITH BX (WRVU 3.56) Elías Alicea MD 05/01/14 1307 05/01/14 1356 Events Date Time Event Comment 05/01/2014 1208 1307 AN Verify 1307 Start 1310 An Start Data 1314 An Induction 1318 Anesthesia Ready 1351 an stop data 1356 Stop To recovery, re port to RN VSS. Meds Name Total lidocaine IV 50 mg propofol 160 mg propofol INF 678.6 mg lactated ringers infusion 900 mL * Agents Name O2 * Blood No blood administrations on file. Lines, Drains, and Airways Type Details Placement Removal (RETIRED) Peripheral IV Line - Single Lumen 05/01/14; 1159; metacarpal vein right (top of hand); cxpo-kul-[id number] catheter system; 20 gauge; intradermal injection, tolerated well; 05/01/14; 1458 05/01/14 1159 by Kai Rodriguez RN 05/01/14 1458 by Dmitri Palumbo RN documented in this encounter Social History Tobacco Use Types Packs/Day Years Used Date Smoking Tobacco: Former Sex and Gender Information Value Date Recorded Sex Assigned at Not on file Gender Identity Not on file Sexual Orientation Not on file documented as of this encounter OR Notes * Anesthesia Postprocedure Evaluation - Elías Alicea MD - 05/01/2014 2:48 PM EDT Patient: Dakota Cline Procedure(s) Performed: Procedure(s): COLONOSCOPY FLEXIBLE, WITH BX Actual Anesthetic: MAC Patient location: PACU Post-op pain: Adequate analgesia Post-op nausea: no nausea or vomiting Last Vitals: Filed Vitals: 05/01/14 1357 BP: 113/74 Pulse: 52 Temp: Resp: 12 Post-op cardiovascular and respiratory status: is stable Level of consciousness: awake, alert and oriented Complications: no apparent complications and tolerated the procedure well, denies recall. Fluid Status: normal * Anesthesia Preprocedure Evaluation - Elías Alicea MD - 05/01/2014 12:06 PM EDT Pre-Anesthesia Evaluation for: Dakota Cline a 59 y.o. male. Procedure(s): COLONOSCOPY, DIAGNOSTIC There are no active problems to display for this patient. No past medical history on file. No past surgical history on file. History Substance Use Topics ??? Smoking status: Former Smoker ??? Smokeless tobacco: Not on file ??? Alcohol Use: History Drug Use No Known Allergies Medications: MAR and/or home medications have been reviewed. Physical Exam: There were no vitals filed for this visit. There is no height or weight on file to calculate BMI. Airway Assessment: Mallampati: II TM distance: >3 FB Neck ROM: full Cardiovascular Assessment: Pulmonary Assessment: Dental Assessment: Misc Assessment: Anesthesia Plan: ASA 2 MAC, with a(n) intravenous induction 59 y/o male with HTN for colonoscopy. Pt ID, seen, examined, risks/benefits discussed, consent obtained. Region - Other Informed Consent: Anesthetic plan and risks discussed with patient. Plan discussed with PRODUCTION COORDINATOR. [facility]. Assessment: documented in this encounter Plan of Treatment Not on file documented as of this encounter Visit Diagnoses Not on filedocumented in this encounter Administered Medications Inactive Administered Medications - up to 3 most recent administrations Medication Order MAR Action Action Date Dose Rate Site lactated ringers infusion 100 mL/hr, Intravenous, CONTINUOUS, Starting on Thu05/01/14 at 1215, Until Thu05/01/14 at 1735, Endoscopy (Day of Procedure) New Bag 05/01/2014 12:54 PM EDT mL lidocaine (PF) (XYLOCAINE) 100 mg/5 mL (2 %) injection PRN, Starting on Thu05/01/14 at 1314, Until Thu05/01/14 at 1357, Anesthesia Intra-op, Routine Given 05/01/2014 1:14 PM EDT 50 mg propofol (DIPRIVAN) 10 mg/mL bolus injection (Anesthesia) PRN, Starting on Thu05/01/14 at 1314, Until Thu05/01/14 at 1357, Anesthesia Intra-op Given 05/01/2014 1:18 PM EDT 60 mg Given 05/01/2014 1:14 PM EDT 100 mg propofol (DIPRIVAN) infusion CONTINUOUS PRN, Starting on Thu05/01/14 at 1314, Until Thu05/01/14 at 1357, Anesthesia Intra-op, Routine Rate/Dose Change 05/01/2014 1:35 PM EDT 225 mcg/kg/min 105.3 mL/hr Rate/Dose Change 05/01/2014 1:20 PM EDT 300 mcg/kg/min 140 .4 mL/hr New Bag 05/01/2014 1:14 PM EDT 250 mcg/kg/min 117 mL/hr documented in this encounter Care Teams Hatchery Man Relationship Specialty Start Date End Date Trent Melo MD [address] [place] [address] PCP - General 12/02/10 02/28/19 documented as of this encounter
--- OUTSIDE RECORDS SUMMARY | 2024-09-30 13:41 | XMS_ITS | Encounter Summary ---
Author Organization [facility] Address [address] [place] [address] Care Team Providers Care Hygiene Assistant Name Role Phone Unavailable Primary Care Provider Unavailabl e Encounter Details Date Type Department Care Team (Late st Contact Info) Description 07/02/2021 Lab Requisition [facility] Pathology & Laboratory Medicine - [facility] [address] [place] [address] Outr Resulting Lab, Provider Social History Tobacco Use Types Packs/Day Years Used Date Smoking Tobacco: Never Assessed Sex and Gender Information Value Date Recorded Sex Assigned at Not on file Legal Sex Male 16:01 EDT Gender Identity Not on file Sexual Orientation Not on file documented as of this encounter Plan of Treatment Not on file documented as of this encounter Procedures Procedure Name Priority Date/Time Associated Diagnosis Comments PSA TOTAL, DIAGNOSTIC Routine 07/02/2021 10:50 EDT documented in this encounter Results * PSA TOTAL, DIAGNOSTIC (07/02/2021 10:50 EDT) PSA 1.9 0.0 - 4.5 ng/mL 07/02/2021 22:22 EDT [facility] Blood VENOUS BLOOD / Unknown 07/02/2021 10:50 EDT 07/02/2021 21:23 EDT Narrative [facility] - 07/02/2021 22:22 EDT NOTE: Serum PSA concentration should not be interpreted as absolute evidence for the presence or absence of malignant disease. Assayed on Siemens ADVIA Centaur XPT using chemiluminescent technology.??Values obtained by using different assay methods cannot be used interchangeably. us Provider Outr Resulting Lab CHEMISTRY & BLOOD GA S ORDERABLES Final Result [facility] [address] [place] [address] documented in this encounter Visit Diagnoses Not on filedocumented in this encounter
--- OUTSIDE RECORDS SUMMARY | 2024-09-30 13:41 | XMS_ITS | Encounter Summary ---
Author Organization [facility] Address [facility] [place] [address] Care Team Providers Care Propeller Layout Worker Name Role Phone Fani Jolley APRN Primary Care Provider [phone] Encounter Details Date Type Department Care Team (Latest Contact Info) Description 06/20/2019 11:59 AM EDT - 06/20/2019 2:17 PM EDT Hospital Encounter [place] [address] Gurvinder Bruce MD [facility] [place] [address] Discharge Disposition: Home Social History Tobacco Use [...] Sign Reading Time Taken Comments Blood Pressure 118/63 06/20/2019 2:00 PM EDT Pulse 61 06/20/2019 12:27 PM EDT Temperature 36.8 ??C (98.2 ??F) 06/20/2019 12:27 PM E DT Respiratory Rate 19 06/20/2019 2:00 PM EDT Oxygen Saturation 98% 06/20/2019 2:00 PM EDT Inhaled Oxygen Concentration - - Weight 79.8 kg (176 lb) 06/20/2019 12:27 PM EDT Height 177.8 cm (5' 10) 06/20/2019 12:27 PM EDT Body Mass Index 25.25 06/20/2019 12:27 PM EDT documented in this encounter Discharge Instructions * Discharge Instructions* Elizabeth Perez RN - 06/20/2019 1:29 PM EDT Please call [phone] before 8pm Mon-Fri with problems, questions or concerns. If you call after 8pm or on weekends, call the Hospital at [phone] and ask to speak to the Packing House Supervisor machine carton marker and the barrel dedenting machine operator will contact that person for you. * Patient Instructions* Gurvinder Bruce MD - 06/20/2019 1:27 PM EDT Please see Recommendations in the Provation procedure report which is documented in the procedural note in E-DH. * Attachments The following attachments cannot be sent through Care Everywhere. * Colonoscopy: Post-op (Singaporean) documented in this encounter Medications at Time of Discharge Medication Sig Dispensed Refills Start Date End Date hydroCHLOROthiazide (HYDRODIURIL) 12.5 mg Tablet Take 12.5 [...] mouth daily. documented as of this encounter H&P Notes * Gurvinder Bruce MD - 06/20/2019 12:45 PM EDT Gastroenterology and Hepatology Pre-Procedure History and Physical Exam Procedure: Colonoscopy: Indication: Polyp surveillance. EXAM: HEENT: Airway examined, oropharynx clear Mallampati Score: Per anesthesia LUNGS: Clear to auscultation HEART: Regular rate and rhythm, normal S1, S2 ABDOMEN: Normal bowel sounds, soft, non tender, non distended, A/P Proceed with the planned endoscopic procedure. ASA 2 - Patient with mild systemic disease with no functional limitations Sedation Plan: deep Risks and benefits of the procedure explained to the patient. Consent signed. documented in this encounter Miscellaneous Notes * Op Note - Gurvinder Bruce MD - 06/20/2019 1:26 PM EDT [facility] Operative Note Patient Name: Dakota Cline : [id number] MR#: [id number] Case Date: 06/20/2019 Surgeon: Surgeon(s) and Role: * Gurvinder Bruce MD - Primary Preoperative diagnosis: Five year FU last 05/01/14 same day Postoperative diagnosis: * No post-op diagnosis entered * Procedure(s) (LRB): COLONOSCOPY, DIAGNOSTIC (N/A) Anesthesia: MAC Full procedure note is documented under the Procedure section of eDH. documented in this encounter Plan of Treatment Not on file documented as of this encounter Procedures Procedure Name Priority Date/Time Associated Diagnosis Comments SPECIMEN TO PATHOLOGY Routine 06/20/2019 1:30 PM EDT SURGICAL PATHOLOGY REPORT Routine 06/20/2019 1:15 PM EDT Colonoscopy, Diagnostic (19992) 06/20/2019 12:49 PM EDT Five year FU last 05/01/14 same day COLONOSCOPY Routine 06/20/2019 12:03 PM EDT documented in this encounter Results * Specimen to Pathology (06/20/2019 1:30 PM EDT) AP Specimen 06/20/2019 1:30 PM EDT 06/20/2019 1:30 PM EDT [facility] LABORATORY - 06/20/2019 1:30 PM EDT Specimen requisition ordered. ??Separate Pathology report to follow Gurvinder Bruce MD PATHOLOGY/CYTOLOGY O YVONNE Performing Organization Address [facility]/ZIP Co de Phone Number [facility] [place] [address] * Surgical Pathology Report (06/20/2019 1:15 PM EDT) Final Diagnosis [id number] ? Location: 4T; EA06; A The signing pathologist has (i) examined the relevant preparation(s) for the specimen(s) and (ii) rendered or confirmed the diagnosis(es). . ?Surgical Pathology DIAGNOSIS Sigmoid colon, ??polypectomy: - Tubular adenoma. CR-PX Electronically signed by: ??Tony Sosa MD Verified: ??06/23/2019 ?Pathologist Performed at: ??-[facility] Dept. of Pathology, [place], [place] CLINICAL INFORMATION Specimen Submitted: A - Sigmoid polyp Clinical History and Diagnosis: 5 year follow-up SPECIMEN PROCESSING A - Labeled/Fixativ e: Sigmoid polyp, formalin. Quantity/Size: Single, 0.8 cm. Tissue Description: Soft, pink polyp. Sections/Proces sing: Trisected and entirely submitted in 1 cassette labeled A1. ??sns 06/23/2019 4:35 PM EDT [facility] GI Biopsy 06/20/2019 1:15 PM EDT 06/20/2019 1:15 PM EDT Gurvinder Bruce MD PATHOLOGY/CYTOLOGY O YVONNE Performing Organization Address [facility]/ZIP Co de Phone Number [facility] [place] [address] * COLONOSCOPY (06/20/2019 12:03 PM EDT) COLONOSCOPY [facility] Endoscopy ___ Procedure Date: 06/20/2019 12:03 PM ? Patient Name: Dakota Cline ? Date of : 1955 ? Age: 64 ? Order #: [id number] ? Instrument Name: [id number] ? ___ Procedure: ? Colonoscopy Indications: ? High risk colon cancer surveillance: ? Personal history of colonic polyps Providers: ? Gurvinder Bruce MD, Lisa Robertson, ? RN, Leon Mcnulty Referring : ?Fani Jolley Medicines: ? Propofol per Anesthesia [...] preparation was evaluated using ? the BBPS ([place] Bowel Preparation ? Scale) with scores of: [...] PM PROVATION 06/20/2019 12:0 3 PM EDT Fain Jolley APRN GENERAL SURGICAL ORDERABLES PROVATION documented in this encounter Visit Diagnoses Not on filedocumented in this encounter Administered Medications Inactive Administered Medications - up to 3 most recent administrations Medication Order MAR Action Action Date Dose Rate Site lactated ringers infusion 100 mL/hr, Intravenous, CONTINUOUS, Starting on Thu06/20/19 at 1245, Until Thu06/20/19 at 1402, Endoscopy (Day of Procedure) New Bag 06/20/2019 12:36 PM EDT 100 mL/hr 100 mL/hr documented in this encounter Active and Recently Administered Medications Times are shown in EDT. Continuous Medication Order 06/18/2019 06/19/2019 06/20/2019 lactated ringers infusion (CANCELED) 100 mL/hr, Intravenous, CONTINUOUS, Starting on 06/20/19 at 1245, Until 06/20/19 at 1402, Endoscopy (Day of Procedure) 1236 (New Bag - Prov ider: Jessie Neri RN) documented in this encounter Care Teams Propeller Layout Worker Relationship Specialty Start Date End Date Fani Jolley APRN [address] [place] [address] PCP - General Family Medicine 03/01/19 documented as of this encounter
--- OUTSIDE RECORDS SUMMARY | 2024-09-30 13:41 | XMS_ITS | Encounter Summary ---
Author Organization [facility] Address [facility] [place] [address] Care Team Providers Care Sanitation Laborer Name Role Phone Fani Jolley APRN Primary Care Provider [phone] Encounter Details Date Type Department Care Team (Late st Contact Info) Description 06/20/2019 12:45 PM EDT - 06/20/2019 1:30 PM EDT [place] [address] Gurvinder Bruce MD [facility] [place] [address] COLONOSCOPY, DIAGNOSTIC (WRVU 3.26) Social History Tobacco Use Types Packs/Day Years [...] Sign Reading Time Taken Comments Blood Pressure 73/47 06/20/2019 1:30 PM EDT Pulse 61 06/20/2019 12:27 PM EDT Temperature 36.8 ??C (98.2 ??F) 06/20/2019 12:27 PM E DT Respiratory Rate 18 06/20/2019 1:30 PM EDT Oxygen Saturation 99% 06/20/2019 1:30 PM EDT Inhaled Oxygen Concentration - - Weight 79.8 kg (176 lb) 06/20/2019 12:27 PM EDT Height 177.8 cm (5' 10) 06/20/2019 12:27 PM EDT Body Mass Index 25.25 06/20/2019 12:27 PM EDT documented in this encounter Discharge Instructions * Discharge Instructions* Elizabeth Perez RN - 06/20/2019 1:29 PM EDT Please call [phone] before 8pm Mon-Fri with problems, questions or concerns. If you call after 8pm or on weekends, call the Hospital at [phone] and ask to speak to the Wood Boatbuilder Apprentice mission planner and the winchman/crane operator will contact that person for you. * Patient Instructions* Gurvinder Bruce MD - 06/20/2019 1:27 PM EDT Please see Recommendations in the Provation procedure report which is documented in the procedural note in E-DH. * Attachments The following attachments cannot be sent through Care Everywhere. * Colonoscopy: Post-op (Peruvian) documented in this encounter Medications at Time [...] Bruce MD - 06/20/2019 1:26 PM EDT [facility] Operative Note Patient Name: Dakota Cline : [id number] MR#: [id number] Case Date: 06/20/2019 Surgeon: Surgeon(s) and Role: [...] Routine 06/20/2019 1:15 PM EDT Colonoscopy, Diagnostic (71919) 06/20/2019 12:49 PM EDT Five year FU last 05/01/14 same day COLONOSCOPY Routine 06/20/2019 12:03 PM EDT documented in this encounter Results * Specimen to Pathology (06/20/2019 1:30 PM EDT) AP Specimen 06/20/2019 1:30 PM EDT 06/20/2019 1:30 PM EDT [facility] LABORATORY - 06/20/2019 1:30 PM EDT Specimen requisition ordered. ??Separate Pathology report to follow Gurvinder Bruce MD PATHOLOGY/CYTOLOGY O YVONNE Performing Organization Address [facility]/ZIP Co de Phone Number [facility] [address] * Surgical Pathology Report (06/20/2019 1:15 PM EDT) Final Diagnosis [id number] ? Location: 4T; EA06; A The signing pathologist has (i) examined the relevant preparation(s) for the specimen(s) and (ii) rendered or confirmed the diagnosis(es). . ?Surgical Pathology DIAGNOSIS Sigmoid colon, ??polypectomy: - Tubular adenoma. CR-PX Electronically signed by: ??Tony Sosa MD Verified: ??06/23/2019 ?Pathologist Performed at: ??-[facility] Dept. of Pathology, [place], [place] CLINICAL INFORMATION Specimen Submitted: A - Sigmoid polyp Clinical History and Diagnosis: 5 year follow-up SPECIMEN PROCESSING A - Labeled/Fixativ e: Sigmoid polyp, formalin. Quantity/Size: Single, 0.8 cm. Tissue Description: Soft, pink polyp. Sections/Proces sing: Trisected and entirely submitted in 1 cassette labeled A1. ??sns 06/23/2019 4:35 PM EDT [facility] GI Biopsy 06/20/2019 1:15 PM EDT 06/20/2019 1:15 PM EDT Gurvinder Bruce MD PATHOLOGY/CYTOLOGY O YVONNE Performing Organization Address [facility]/ZIP Co de Phone Number [facility] [place] [address] * COLONOSCOPY (06/20/2019 12:03 PM EDT) COLONOSCOPY [facility] Endoscopy ___ Procedure Date: 06/20/2019 12:03 PM ? Patient Name: Dakota Cline ? Date of : 1955 ? Age: 64 ? Order #: [id number] ? Instrument Name: [id number] ? ___ Procedure: ? Colonoscopy Indications: ? [...] preparation was evaluated using ? the BBPS ([place] Bowel Preparation ? Scale) with scores of: [...] 06/20/2019 12:0 3 PM EDT Fani Jolley ROOM MANAGER GENERAL SURGICAL ORDERABLES PROVATION documented in this [...] RN) documented in this encounter Care Teams Sanitation Laborer Relationship Specialty Start Date End Date Fani Jolley APRN [address] [place] [address] PCP - General Family Medicine 03/01/19 documented as of this encounter
--- OUTSIDE RECORDS SUMMARY | 2024-09-30 13:41 | XMS_ITS | Encounter Summary ---
Author Organization [facility] [place] [address] Care Team Providers Care Anchor Tack Puller Name Role Phone Trent Melo MD Primary Care Provider [phone] Encounter Details Date Type Department Care Team (Latest Contact Info) Description 12/02/2010 8:37 AM EDT - 12/02/2010 12:52 PM EDT Hospital En[place] [address] Marah Oswald MD [facility] [place] [address] Discharge Disposition: Home Social History Tobacco Use [...] Priority Date/Time Associated Diagnosis Comments COLONOSCOPY Routine 12/02/2010 10:59 AM EDT documented in this encounter Results * COLONOSCOPY (12/02/2010 10:59 AM EDT) COLONOSCOPY [facility] Endoscopy ___ Patient Name: Dakota Cline ? Procedure Date: 12/02/2010 10:59:01 AM ? Date of : 1955 ? Age: 55 ? ___ Procedure: ? Colonoscopy Patient Profile: ? hbp, hx panic attacks Providers: ? Marah Oswald MD, Ace Vieira RN, ? Valeri Valdes Foamite MixerMary ? CRAIG Randle Referring : ?Trent Melo MD Medicines: ? Midazolam 5.5 mg IV, Meperidine 100 ? mg IV, Diphenhydramine 50 mg IV. This ? resulted in the patient being ? generally awake and appearing ? appropriately sedated but unable to ? lie on his side (continuously turning ? onto his back and looking around) ? despite being oriented and aware he ? was here for a colo. The procedure ? was therefore cancelled without a ? rectal exam or inserting the scope. Procedure: ? Pre-Anesthesia Assessment: ? - Prior to the procedure, a History ? and Physical was performed, and ? patient medications, allergies and ? sensitivities have been reviewed. The ? patient's tolerance of previous ? anesthesia has been reviewed. ? - The risks and benefits of the ? procedure and the sedation options ? and risks were discussed with the ? patient. All questions were answered ? and informed consent was obtained. ? - Respiratory Examination: clear to ? auscultation. ? - CV Examination: normal. ? - ASA Grade Assessment: II - A ? patient with mild systemic disease. ? - After reviewing the risks and ? benefits, the patient was deemed in ? satisfactory condition to undergo the ? procedure. ? - The anesthesia plan was to use ? moderate sedation/analgesia ? (conscious sedation). ? - Immediately prior to administration ? of medications, the patient was ? re-assessed for adequacy to receive ? sedatives. ? The procedure, indications, benefits, ? risks and alternatives were explained ? to the patient. Specifically ? discussed were potential ? complications including, but not ? limited to, bleeding, perforation, ? infection, missing a cancer, and ? adverse medication reactions. ? Findings: ? Impression: ?The procedure was cancelled without ? doing even a rectal exam (will ? reschedule with Propofol) because the ? patient was continuously trying to ? turn onto his back to check his ? surroundings (anxiety) and it was not ? possible to proceed despite pausing ? and explaining and orienting patient ? for several tries over 20 minutes. Marah Oswald MD Signed Date: 12/02/2010 11:52:54 AM Number of Addenda: 0 ? Note initiated on 12/02/2010 10:59:01 AM PROVATION 12/02/2010 10:5 9 AM EDT Unknown GENERAL SURGICAL ORD ERABLES PROVATION documented in this encounter Visit Diagnoses Not on filedocumented in this encounter Care Teams Anchor Tack Puller Relationship Specialty Start Date End Date Trent Melo MD [address] [place] [address] PCP - General 12/02/10 02/28/19 documented as of this encounter
--- OUTSIDE RECORDS SUMMARY | 2024-09-30 13:41 | XMS_ITS | Encounter Summary ---
Author Organization [facility] Address [facility] [place] [address] Care Team Providers Care Finished Goods Stock Clerk Name Role Phone Trent Melo MD Primary Care Provider [phone] Encounter Details Date Type Department Care Team (Late st Contact Info) Description 05/01/2014 1:00 PM EDT - 05/01/2014 1:45 PM EDT Surgery [place] [address] Gurvinder Bruce MD [facility] [place] [address] COLONOSCOPY FLEXIBLE, WITH BX (WRVU 3.56) Social History Tobacco Use Types Packs/Day Years Used Date Smoking Tobacco: Former Sex and Gender Information Value Date Recorded Sex Assigned at Not on file Gender Identity Not on file Sexual Orientation Not on file documented as of this encounter Last Filed Vital Signs Vital Sign Reading Time Taken Comments Blood Pressure 187/109 05/01/2014 11:58 AM EDT Pulse 51 05/01/2014 11:56 AM EDT Temperature 36.6 ??C (97.9 ??F) 05/01/2014 11:56 AM E DT Respiratory Rate 16 05/01/2014 11:56 AM EDT Oxygen Saturation 100% 05/01/2014 11:56 AM EDT Inhaled Oxygen Concentration - - Weight - - Height - - Body Mass Index - - documented in this encounter Discharge Instructions * Discharge Instructions* Dmitri Palumbo RN - 05/01/2014 2:01 PM EDT Colonoscopy What to expect after the procedure You may feel a little more gassy or bloated than usual. This is normal. You should expect the return of normal bowel function in the 2 to 3 days. Activity Because of the sedation that you received your judgement and reaction time are effected ?? Go home and rest quietly for the remainder of the day. You may resume your normal activities tomorrow. ?? Change from one position to the next slowly. You may lose your balance unexpectedly ?? Be careful on stairs, as you may be unsteady on your feet FOR THE NEXT 24 HRS ?? DO NOT DRIVE OR OPERATE ANY MACHINERY ?? DO NOT DRINK ALCOHOLIC BEVERAGES ?? DO NOT SIGN LEGAL DOCUMENTS ?? If you are a smoker: DO NOT SMOKE WHILE YOU ARE ALONE Diet ?? Start by eating small portions of foods that ordinarily will not upset your stomach . Avoid gas producing foods for the next few days ?? Be gentle with what you choose to start with ?? Drink plenty of fluids ( unless your doctor has told you not to). IV SITE-- slight redness, or tenderness is normal. You can use warm compresses if you become concerned. If the tenderness +/or redness increases or foul drainage and a red streak occurs, please contact your PCP immediately When shoud you call for help? Call 911 anytime you think you may need emergency care. For example If you pass out ( loss of consciousness) If you pass maroon or bloody stools If you have severe belly pain Call your doctor now or seek immediate medical care If your stools are black and tarlike If your stools have streaks of blood, but you did not have a biopsy or any polyps removed If you have belly pain, or your belly is swollen and firm If you vomit If you have a fever If you are very dizzy Watch closely for changes in your health, and be sure to contact your doctor if you have any problems Your doctor will let you know when you will need your next colonoscopy. The results of your test and your risk for colorectal cancer will help your doctor decide how often you need to be checked. Thursday-Thursday Clinic [phone] 8a-5p Same Day Endo [phone] 7a-8p Otherwise contact [phone] and ask to speak to the manager personal control panel builder Follow up care is a leach part of your treatment and safety. Be sure to make and go to all appointments, and call your doctor if you are having problems. Discharge instructions reviewed with patient who expresses understanding * Patient Instructions* Gurvinder Bruce MD - 05/01/2014 1:51 PM EDT Please see Recommendations in the Provation procedure report which is documented in the procedural note in E-DH. documented in this encounter Medications at Time of Discharge Medication Sig Dispensed Refills Start Date End Date lisinopril (PRINIVIL;ZESTRIL) 20 mg tablet Take 40 mg by mouth daily. sertraline (ZOLOFT) 25 mg tablet Take 50 mg by mouth daily. metoprolol tartrate (LOPRESSOR) 25 mg tablet Take 25 mg by mouth 2 times daily. 06/20/2019 pantoprazole (PROTONIX) 40 mg tablet Take 40 mg by mouth daily. 06/20/2019 documented as of this encounter H&P Notes * Jayant Cruz - 05/01/2014 12:48 PM EDT Gastroenterology & Hepatology Pre-Procedure History and Physical Procedure: Colonscopy Indication: CRC screening, average risk Dakota Cline is a 59 y.o. male with no family history of CRC, here for first time screening colonoscopy. Denies gastrointestinal complaints. Medications: Reviewed in EDH Allergies: No Known Allergies Medical/Social History/Family History: Reviewed in EDH. Blood pressure 187/109, pulse 51, temperature 36.6 ??C (97.9 ??F), temperature source Oral, resp. rate 16, SpO2 100.00%. GEN: NAD HEENT: anicteric Chest: CTAB Heart: RRR Abdomen: normal bowel sounds, soft, non tender Assessment and Plan: 59 y.o. male for screening colonscopy Proceed with colonoscopy Risks and benefits of the procedure were discussed with the patient. Consent has been signed. Jayant Cruz MD Gastroenterology and Hepatology Fellow documented in this encounter Miscellaneous Notes * Miscellaneous - Provider, Scanning - 05/01/2014 9:26 PM EDT * Miscellaneous - Provider, Scanning - 05/01/2014 9:24 PM EDT * Miscellaneous - Provider, Scanning - 05/01/2014 2:20 PM EDT * Op Note - Gurvinder Bruce MD - 05/01/2014 1:51 PM EDT [facility] Operative Note Patient Name: Dakota Cline : [id number] MR#: [id number] Case Date: 05/01/2014 Surgeon: Surgeon(s) and Role: * Gurvinder Bruce MD - Primary * Jayant Cruz MD - Fellow Preoperative diagnosis: screening Postoperative diagnosis: * No post-op diagnosis entered * Procedure(s): COLONOSCOPY FLEXIBLE, WITH BX Full procedure note is documented under the Procedure section of eDH. documented in this encounter Plan of Treatment Not on file documented as of this encounter Procedures Procedure Name Priority Date/Time Associated Diagnosis Comments SPECIMEN TO PATHOLOGY Routine 05/01/2014 2:01 PM EDT SURGICAL PATHOLOGY REPORT Routine 05/01/2014 2:00 PM EDT COLONOSCOPY FLEXIBLE, WITH BX (WRVU 3.56) 05/01/2014 1:07 PM EDT screening COLONOSCOPY Routine 05/01/2014 12:34 PM EDT documented in this encounter Results * Specimen to Pathology (surgical or derm) (05/01/2014 2:01 PM EDT) AP Specimen 05/01/2014 2:01 PM EDT 05/01/2014 2:01 PM EDT Narrative LUNA BLACK - 05/01/2014 2:01 PM EDT Specimen requisition ordered. ??Separate Pathology report to follow Gurvinder Bruce MD PATHOLOGY/CYTOLOGY O RDERAJAVI [facility]NA BLACK * Surgical Pathology Report (05/01/2014 2:00 PM EDT) Final Diagnosis ? [facility] ? Provider: ?? JAYANT CRUZ ?? Pt. Name: ?? DAKOTA CLINE ? Acc #: ?[id number] ?Pt. ? Col Date: ?? 05/01/2014 ? /Sex: ?1955,(59 years),Male ? Rec Date: ?? 05/01/2014 ? LOC: ?4T ? SURGICAL PATHOLOGY ? ---Pathologic Diagnosis--- ? Endoscopic biopsy - Tubular adenoma. ? CR-PX ? 05/02/14 ? AAS ? 05/02/14 Verified by: ? Niles Cheung MD ? Pathologist ? (Electronic Signature) ? The attending pathologist whose signature appears on this report has ? reviewed all diagnostic slides and has edited the gross and/or ? microscopic portion of the report in rendering the final pathologic ? diagnosis. ? ---Gross Description--- ? A - Labeled/Fixativ e: 2 mm ascending polyp, formalin. ? Quantity/Size: Single, 0.3 cm. ? Tissue Description: Soft, yellow-bush tissue and green-yellow debris. ? Sections/Proces sing: (T1) ??ejr ? ---Clinical Information--- ? Specimen Submitted: ? A - 2 mm ascending polyp ? Clinical History: ? Screening colo- ? Clinical Diagnosis: ? Same 05/02/2014 10:59 AM EDT [facility] GI Biopsy 05/01/2014 2:00 PM EDT 05/01/2014 2:00 PM EDT Jayant rCuz MD PATHOLOGY/CYTOLOGY O RDERAJAVI LUNA [facility] [place] [address] * COLONOSCOPY (05/01/2014 12:34 PM EDT) COLONOSCOPY [facility] Endoscopy Patient Name: Dakota Cline ? Procedure Date: 05/01/2014 12:34 PM ? Date of : 1955 ? Age: 59 ? Order #: [id number] ? Procedure: ? Colonoscopy Indications: ? Screening for colorectal malignant ? neoplasm Patient Profile: ? First colonscopy, no FH CRC Providers: ? Gurvinder Bruce MD, Blaise Arellano ? , RN, Mayra Llanes, RN, Geovanni ? MD Roque Referring : ?Trent Melo MD Medicines: ? Monitored Anesthesia Care Complications: ? No immediate complications. Procedure: ? Pre-Anesthesia Assessment: ? - Prior [...] ? and informed consent was obtained. ? The procedure, indications, benefits, ? risks [...] the ? colonoscope was withdrawn. The ? colonoscopy was performed without ? difficulty. The patient tolerated the ? procedure well. The quality of the ? bowel preparation was good. ? Findings: ? A sessile polyp was found in the ascending colon. The ? polyp was 2 mm in size. The polyp was removed with a ? cold biopsy forceps. Resection and retrieval were ? complete. ? The exam was otherwise without abnormality on direct ? and retroflexion views. ? The terminal ileum appeared normal. ? Impression: ?- One 2 mm polyp in the ascending ? colon. Resected and retrieved. ? - The examination was otherwise ? normal on direct and retroflexion ? views. ? - The examined portion of the ileum ? was normal. Recommendation: ?Follow up pathology ? Attending Participation: ? I was present and participated during the entire ? procedure, including non-leach portions. ? __ Gurvinder Bruce MD 05/01/2014 2:12 PM This report has been signed electronically. Number of Addenda: 0 Note Initiated On: 05/01/2014 12:34 PM PROVATION 05/01/2014 12:3 4 PM EDT Trent Melo MD GENERAL SURGICAL ORD ERABLES PROVATION documented in this encounter Visit Diagnoses Not on filedocumented in this encounter Active and Recently Administered Medications Times are shown in EDT. Continuous Medication Order 04/29/2014 04/30/2014 05/01/2014 lactated ringers infusion (CANCELED) 100 mL/hr, Intravenous, CONTINUOUS, Starting on Thu05/01/14 at 1215, Until Thu05/01/14 at 1735, Endoscopy (Day of Procedure) 1254 (New Bag - Prov ider: Dmitri Dubose CRNA)1321 (Anesthesia Volume Adjustment - Provider: Dmitri Dubose CRNA)1355 (Anesthesia Volume Adjustment - Provider: Dmitri Dbuose CRNA) documented in this encounter Care Teams Finished Goods Stock Clerk Relationship Specialty Start Date End Date Trent Melo MD [address] [place] [address] PCP - General 12/02/10 02/28/19 documented as of this encounter
--- OUTSIDE RECORDS SUMMARY | 2024-09-30 13:41 | XMS_ITS | Encounter Summary ---
Author Organization [facility] Address [facility] [place] [address] Care Team Providers Care Composition Stone Applicator Name Role Phone Trent Melo MD Primary Care Provider [phone] Encounter Details Date Type Department Care Team (Late st Contact Info) Description 12/02/2010 9:00 AM EDT Procedure [place] [address] Marah Oswald MD [facility] [place] [address] Social History Tobacco Use Types Packs/Day Years Used Date Smoking Tobacco: Never Assessed Sex and Gender Information Value Date Recorded Sex Assigned at Not on file Gender Identity Not on file Sexual Orientation Not on file documented as of this encounter Plan of Treatment Not on file documented as of this encounter Visit Diagnoses Not on filedocumented in this encounter Care Teams Composition Stone Applicator Relationship Specialty Start Date End Date Trent Melo MD [address] [place] [address] PCP - General 12/02/10 02/28/19 documented as of this encounter
--- OUTSIDE RECORDS SUMMARY | 2024-09-30 13:41 | XMS_ITS | Encounter Summary ---
Author Organization [facility] [place] [address] Care Team Providers Care Emulsion Operator Name Role Phone Fani Jolley APRN Primary Care Provider [phone] Encounter Details Date Type Department Care Team (Late st Contact Info) Description 04/21/2019 Telephone [place] [address] Roxanne Suazo Social History Tobacco Use Types Packs/Day Years Used Date Smoking Tobacco: Former Sex and Gender Information Value Date Recorded Sex Assigned at Not on file Gender Identity Not on file Sexual Orientation Not on file documented as of this encounter Miscellaneous Notes * Telephone Encounter - Roxanne Suazo - 04/21/2019 7:56 AM EDT Dakota Cline [id number] Diagnosis: 5 yr surv from 2013 1. Have you ever had a colonoscopy before? [x] YES [] NO If Yes, Date of Last [place]: 05/01/2014 If yes, did you have any problems with the procedure? [] YES [x] NO Explain: What type of sedation was used: consult 2. Do you take any Blood Thinners? [] YES [x] NO If Yes, type: 3. Do you have a Pacemaker or Defibrillator device? [] YES [x] NO If Yes send inCORD:USE Cord Blood Banket message to [employer] ENDO DEVICE CHECK 4. Are you a diabetic? [] YES [x] NO If yes, controlled by meds or diet? 5. Do you have any Allergies to Eggs, Latex or Medications? [] YES [x] NO If Yes, what: 6. Do you take any Oral Iron Supplements (Including multi vitamins)? [] YES [x] NO 7. Do you have a history of three or more abdominal surgeries? [] YES [x] NO 8. Have you had a problem with sedation or anesthesia? [x] YES [] NO 9. Do you have a c-pap machine or oxygen tank? [] C-PAP [] Oxygen [x] NO 10. Do you take prescription narcotic pain medications? [] YES [x] NO 11. You must have a responsible republican stay at the facility during your procedure and drive you home? [x] YES 12. Is there any other information you would like to give us to aid in scheduling? See case Height: Weight: BMI: ____ Age:64 y.o. documented in this encounter Plan of Treatment Not on file documented as of this encounter Visit Diagnoses Not on filedocumented in this encounter Care Teams Emulsion Operator Relationship Specialty Start Date End Date Fani Jolley APRN [address] [place] [address] PCP - General Family Medicine 03/01/19 documented as of this encounter
--- OUTSIDE RECORDS SUMMARY | 2024-09-30 13:41 | XMS_ITS | Encounter Summary ---
Author Organization [facility] Address [facility] [place] [address] Care Team Providers Care Music Worker Name Role Phone Fani Jolley APRN Primary Care Provider [phone] Encounter Details Date Type Department Care Team (Late st Contact Info) Description 06/20/2019 12:51 PM EDT Anesthesia [place] [address] Calos Mayer MD [facility] [place] [address] Anesthesia Record Procedure Summary Procedure Name Responsible Anesthesiologist Anesthesia Start Time Anesthesia Stop Time COLONOSCOPY, DIAGNOSTIC (WRVU 3.26) (Trunk) Calos Mayer MD 06/20/19 1251 06/20/19 1322 Events Date Time Event Comment 06/20/2019 1218 1250 AN Verify 1251 Start 1252 An Start Data 1255 An Induction 1255 Anesthesia Ready 1322 an stop data 1322 Recovery or ICU Handoff Janeen ent care was transferred to the destination unit staff after review of the patient's medical history, current anesthetic/surgical status and plan, according to the Provider Handoff Checklist. 1322 Stop Meds Name Total IV Lidocaine 100 mg Propofol 50 mg Propofol INF 478.8 mg Dexmedetomidine 8 mcg ePHEDrine 20 mg Sodium Chloride 0.9% 200 mL * Agents Name O2 Air N2O * Blood No blood administrations on file. Lines, Drains, and Airways Type Details Placement Removal (RETIRED) Peripheral IV Line - Single Lumen 06/20/19; 1235; metacarpal vein (top of hand), right; [id number] catheter system; 22 gauge, 1 in length; Jude SRINIVASAN; distraction, intradermal injection, tolerated well; 0; 06/20/19; 1402 06/20/19 1235 by Jessie Neri RN 06/20/19 1402 by Elizabeth Perez RN documented in this encounter Social History [...] OR Notes * Anesthesia Postprocedure Evaluation - Calos Mayer MD - 06/20/2019 1:55 PM EDT Department of Anesthesiology Post-procedure Note Patient: Dakota Cline Procedure Summary Date: 06/20/19 Room / Location: [facility] ENDO 2 / [facility]COPY Anesthesia Start: 1251 Anesthesia Stop: 1322 Procedure: COLONOSCOPY, DIAGNOSTIC (N/A Trunk) Diagnosis: (Five year FU last 05/01/14) (same day) Surgeon: Gurvinder Bruce MD Responsible Provider: Calos Mayer MD Anesthesia Type: MAC ASA Status: 2 All Anesthesia Providers: Anesthesiologist: Calos Mayer MD FUNNEL SETTER: Delmis Smith CRNA Vitals Value Taken Time BP 118/63 06/20/2019 2:00 PM Temp Pulse Resp 19 06/20/2019 2:00 PM SpO2 97 % 06/20/2019 2:01 PM Pain Level 0 06/20/2019 2:00 PM Vitals shown include unvalidated device data. Patient Location: [facility] Level of Consciousness: Awake and Alert Pain Management: Satisfactory Analgesia PONV: None Cardiovascular Status: At Baseline and Hemodynamically Stable Respiratory Status: At Baseline and Room Air Postoperative Fluid Status: Intravascular EUvolemia Possible Anesthetic Complications: NONE apparent at time of evaluation Final Primary Anesthesia Type: General (The anesthetic type performed was the same as planned.) Comments: CALOS MAYER MD * Anesthesia Preprocedure Evaluation - Calos Mayer MD - 06/20/2019 12:16 PM EDT Pre-Anesthesia Evaluation for: Dakota Cline a 64 y.o. male. Procedure(s): COLONOSCOPY, DIAGNOSTIC There are no active problems to display for this patient. No past medical history on file. Past Surgical History: Procedure Laterality Date ??? COLONOSCOPY, BIOPSY 05/01/2014 COLONOSCOPY FLEXIBLE, WITH BX performed by Gurivnder Bruce MD at [facility] ENDOSCOPY Social History Tobacco Use ??? Smoking status: Former Smoker Substance Use Topics ??? Alcohol use: Not on file Social History Substance and Sexual Activity Drug Use Not on file No Known Allergies Medications: MAR and/or home medications have been reviewed. Physical Exam: There were no vitals filed for this visit. There is no height or weight on file to calculate BMI. Airway Assessment: Mallampati: II TM distance: >3 FB Neck ROM: full Cardiovascular Assessment: cardiovascular exam normal Pulmonary Assessment: pulmonary exam normal Dental Assessment: - normal exam Misc Assessment: IV access: Peripheral line Anesthesia Plan: ASA 2 MAC, with a(n) intravenous induction 64 yo male with hx of HTN her for f/up colonoscopy. NPO appropriate. Denies GERD. Propofol MAC. Region - Other Informed Consent: Anesthetic plan and risks discussed with patient and spouse. Plan discussed with FUNNEL SETTER. PAT Clinic Note documented in this encounter Plan of Treatment Not on file documented as of this encounter Visit Diagnoses Not on filedocumented in this encounter Administered Medications Inactive Administered Medications - up to 3 most recent administrations Medication Order MAR Action Action Date Dose Rate Site dexmedetomidine (PRECEDEX) injection PRN, Starting on Thu06/20/19 at 1256, Until Thu06/20/19 at 1322, Anesthesia Intra-op, Routine Given 06/20/2019 12:56 PM EDT 8 mcg ePHEDrine 5 mg/mL multi-dose injection PRN, Starting on Thu06/20/19 at 1326, Until Thu06/20/19 at 1334, Anesthesia Intra-op, Routine Given 06/20/2019 1:30 PM EDT 10 mg Given 06/20/2019 1:26 PM EDT 10 mg lidocaine (PF) (XYLOCAINE) 100 mg/5 mL (2 %) injection PRN, Starting on Thu06/20/19 at 1255, Until Thu06/20/19 at 1322, Anesthesia Intra-op, Routine Given 06/20/2019 12:55 PM EDT 100 mg propofol (DIPRIVAN) 10 mg/mL bolus injection (Anesthesia) PRN, Starting on Thu06/20/19 at 1258, Until Thu06/20/19 at 1322, Anesthesia Intra-op Given 06/20/2019 12:58 PM EDT 50 mg propofol (DIPRIVAN) infusion CONTINUOUS PRN, Starting on Thu06/20/19 at 1255, Until Thu06/20/19 at 1322, Anesthesia Intra-op, Routine Rate/Dose Change 06/20/2019 1:09 PM EDT 200 mcg/kg/min 95.8 mL/hr Rate/Dose Change 06/20/2019 1:07 PM EDT 400 mcg/kg/min 191 .5 mL/hr New Bag 06/20/2019 12:55 PM EDT 350 mcg/kg/min 167.6 mL /hr sodium chloride 0.9% infusion CONTINUOUS PRN, Starting on Thu06/20/19 at 1250, Until Thu06/20/19 at 1322, Anesthesia Intra-op New Bag 06/20/2019 12:50 PM EDT documented in this encounter Care Teams Music Worker Relationship Specialty Start Date End Date Fani Jolley APRN [address] [place] [address] PCP - General Family Medicine 03/01/19 documented as of this encounter
--- OUTSIDE RECORDS SUMMARY | 2024-09-30 13:41 | XMS_ITS | Referral Summary ---
Author Organization [facility] Address [address] [place] [address] Care Team Providers Care Technical Specialist Cytogenetics Name Role Phone Unavailable Primary Care Provider Unavailabl e Social History Tobacco Use Types Packs/Day Years Used Date Smoking Tobacco: Never Assessed Sex and Gender Information Value Date Recorded Sex Assigned at Not on file Legal Sex Male 16:01 EDT Gender Identity Not on file Sexual Orientation Not on file Plan of Treatment Not on file
--- OUTSIDE RECORDS SUMMARY | 2024-09-30 13:41 | XMS_ITS | Encounter Summary ---
Author Organization [facility] Address [facility] [place] [address] Care Team Providers Care Car Seat Upholsterer Name Role Phone Trent Melo MD Primary Care Provider [phone] Encounter Details Date Type Department Care Team (Latest Contact Info) Description 05/01/2014 11:40 AM EDT - 05/01/2014 3:35 PM EDT Hospital Encounter [place] [address] Augusto Claudio MD Gordon, Stuart R, MD [facility] [place] [address] Discharge Disposition: Home Social History Tobacco Use Types Packs/Day Years Used Date Smoking Tobacco: Former Sex and Gender Information Value Date Recorded Sex Assigned at Not on file Gender Identity Not on file Sexual Orientation Not on file documented as of this encounter Last Filed Vital Signs Vital Sign Reading Time Taken Comments Blood Pressure 113/74 05/01/2014 1:57 PM EDT Pulse 52 05/01/2014 1:57 PM EDT Temperature 36.6 ??C (97.9 ??F) 05/01/2014 11:56 AM E DT Respiratory Rate 12 05/01/2014 1:57 PM EDT Oxygen Saturation 99% 05/01/2014 1:57 PM EDT Inhaled Oxygen Concentration - - [...] you need to be checked. Thursday-Thursday Clinic [phone] 8a-5p Same Day Endo [phone] 7a-8p Otherwise contact [phone] and ask to speak to the apartment hotel manager occupational therapist assistants Follow up care is a leach part [...] Bruce MD - 05/01/2014 1:51 PM EDT [facility] Operative Note Patient Name: Dakota Cline : [id number] MR#: [id number] Case Date: 05/01/2014 Surgeon: Surgeon(s) and Role: [...] to follow Gurvinder Bruce MD PATHOLOGY/CYTOLOGY O RDERABLES [facility] BLACK * Surgical Pathology Report (05/01/2014 2:00 PM EDT) Final Diagnosis ? [facility] ? Provider: ?? JAYANT CRUZ ?? Pt. Name: ?? DAKOTA CLINE ? Acc #: ?[id number] ?Pt. ? Col Date: ?? 05/01/2014 ? [...] Diagnosis: ? Same 05/02/2014 10:59 AM EDT [facility] GI Biopsy 05/01/2014 2:00 PM EDT 05/01/2014 2:00 PM EDT Jayant Cruz MD PATHOLOGY/CYTOLOGY O RDERAJAVI LUNA [facility] [place] [address] * COLONOSCOPY (05/01/2014 12:34 PM EDT) COLONOSCOPY [facility] Endoscopy Patient Name: Dakota Cline ? Procedure Date: 05/01/2014 12:34 PM ? Date of : 1955 ? Age: 59 ? Order #: [id number] ? Procedure: ? Colonoscopy Indications: ? Screening [...] CRNA)1355 (Anesthesia Volume Adjustment - Provider: Dmitri Dubose CRNA) documented in this encounter Care Teams Car Seat Upholsterer Relationship Specialty Start Date End Date Trent Melo MD [address] [place] [address] PCP - General 12/02/10 02/28/19 documented as of this encounter
[2024-09-30 14:54] LABS: ALT 52 U/L (16-63); AST 41 U/L (15-37); Albumin 4.3 g/dL (3.4-5.0); Alkaline Phosphatase 44 U/L (46-116); Anion Gap 6.2 mmol/L (3-11); BUN 15 mg/dL (7-18); Bilirubin, Total 1.28 mg/dL (0.2-1.0); CO2 29.8 mmol/L (21.0-32.0); CREATININE 0.9 mg/dL (0.70-1.30); Calcium 9.6 mg/dL (8.5-10.1); Calculated LDL 94 mg/dL (<100); Chloride 97 mmol/L (98-107); Cholesterol 222 mg/dL (<200); Estimated GFR 93.03 (mL/min/1.73m2); Glucose 114 mg/dL (74-106); HDL Cholesterol 119 mg/dL (40-60); Potassium 4.3 mmol/L (3.5-5.1); Sodium 133 mmol/L (136-145); Total Protein 7.6 g/dL (6.4-8.2); Triglyceride 45 mg/dL (<150)
[2024-09-30 23:18] LABS: PSA, Screening 2.7 ng/mL (<=4.5)
== END 2024-09-30 13:38 | disposition home or self-care (01) ==
LOC: NCHCN 13:37
PROVIDERS: PCP Nurse Practitioner Family; Visit Provider Nurse Practitioner Family
DX: I10 Essential (primary) hypertension (principal); D12.6 Benign neoplasm of colon, unspecified
CPT/HCPCS: 80053; 80061; 84153